=== PATIENT | female | born 1955 | race Caucasian/White ===

== ENCOUNTER → 2016-12-07 | Outpatient (CLI) | payer OTHER ==
[~2016-12-07] MED LIST: ASPI-515 PO; CHOL100015 PO; IMAT400T PO; LISI5TAB7 PO; METF10002 PO; OMNIPAQUE 350 MG/ML, 100ML BOTTLE ONE; PRAV10TA2 PO
== END | disposition home or self-care (01) ==
LOC: CFH 14:08
PROVIDERS: ATTEND Specialist
DX: C16.2 Malignant neoplasm of body of stomach (principal); J90 Pleural effusion, not elsewhere classified; K76.89 Other specified diseases of liver; I31.3 Pericardial effusion (noninflammatory); J98.11 Atelectasis; L89.899 Pressure ulcer of other site, unspecified stage; N26.1 Atrophy of kidney (terminal); N28.1 Cyst of kidney, acquired; M47.896 Other spondylosis, lumbar region
CPT/HCPCS: 71030; 74177; Q9967

== ENCOUNTER → 2017-03-30 | Outpatient (CLI) | payer OTHER ==
[~2017-03-30] MED LIST changes: -OMNIPAQUE 350 MG/ML, 100ML BOTTLE ONE
== END | disposition home or self-care (01) ==
LOC: CFH 08:09
PROVIDERS: ATTEND Internal Medicine
DX: Z12.31 Encounter for screening mammogram for malignant neoplasm of breast (principal); E78.2 Mixed hyperlipidemia; E11.65 Type 2 diabetes mellitus with hyperglycemia; K21.9 Gastro-esophageal reflux disease without esophagitis
CPT/HCPCS: G0202

== ENCOUNTER → 2017-06-07 | Outpatient (CLI) | payer OTHER ==
[~2017-06-07] MED LIST changes: +OMNIPAQUE 350 MG/ML, 100ML BOTTLE ONE
== END | disposition home or self-care (01) ==
LOC: CFH 11:26
PROVIDERS: ATTEND Specialist
DX: C78.7 Secondary malignant neoplasm of liver and intrahepatic bile duct (principal); C16.2 Malignant neoplasm of body of stomach; N28.1 Cyst of kidney, acquired; M51.36 Other intervertebral disc degeneration, lumbar region
CPT/HCPCS: 71260; 74177; Q9967

== ENCOUNTER 2017-09-10 08:11 | Emergency (ER) | payer OTHER ==
[~2017-09-10] VITALS: Ht 175.3 cm; Wt 61.1 kg
[~2017-09-10 08:11] MED LIST changes: -OMNIPAQUE 350 MG/ML, 100ML BOTTLE ONE
[2017-09-10 08:13] VITALS: BP 150/90
[2017-09-10] MEDS ORDERED: METO200T5 PO (08:30)
[2017-09-10] MEDS ORDERED: LEVO100T PO (08:30)
[2017-09-10] MEDS ORDERED: CEPH-368 PO (08:30)
[2017-09-10] MEDS ORDERED: MAGN400T36 PO (08:30)
[2017-09-10] MEDS ORDERED: AMLO10TA2 PO (08:30)
[2017-09-10] MEDS ORDERED: SUNI50CA PO (08:30)
[2017-09-10] MEDS ORDERED: KETOROLAC 30 MG/1 ML ONE (10:24)
[2017-09-10] MEDS ORDERED: KETOROLAC 60 MG/2 ML IM ONE (10:30)
== END 2017-09-10 12:06 | disposition home or self-care (01) ==
LOC: ED 11:50
DX: M54.12 Radiculopathy, cervical region (principal); I10 Essential (primary) hypertension; F17.210 Nicotine dependence, cigarettes, uncomplicated
CPT/HCPCS: 36415; 72050; 80047; 84484; 93005; 99285

== ENCOUNTER → 2017-10-06 | Outpatient (CLI) | payer OTHER ==
[~2017-10-06] MED LIST changes: +AMLO10TA2 PO; +CEPH-368 PO; +LEVO100T PO; +MAGN400T36 PO; +METO200T5 PO; +SUNI50CA PO
== END ==
LOC: CFH 12:00
PROVIDERS: ATTEND Nurse Practitioner Primary Care
DX: M48.02 Spinal stenosis, cervical region (principal); M25.78 Osteophyte, vertebrae; I10 Essential (primary) hypertension; E11.65 Type 2 diabetes mellitus with hyperglycemia; K21.9 Gastro-esophageal reflux disease without esophagitis; E03.9 Hypothyroidism, unspecified; E78.2 Mixed hyperlipidemia; E05.90 Thyrotoxicosis, unspecified without thyrotoxic crisis or storm; I47.1 Supraventricular tachycardia; R79.9 Abnormal finding of blood chemistry, unspecified; R53.83 Other fatigue; R01.1 Cardiac murmur, unspecified; E55.9 Vitamin D deficiency, unspecified; N39.0 Urinary tract infection, site not specified; G89.29 Other chronic pain; R20.2 Paresthesia of skin; Z79.899 Other long term (current) drug therapy
CPT/HCPCS: 72141

== ENCOUNTER → 2017-11-04 | Outpatient (CLI) | payer OTHER ==
[~2017-11-04] MED LIST changes: +METO200T47 PO; -METO200T5 PO; +OMNIPAQUE 350 MG/ML, 100ML BOTTLE ONE
== END | disposition home or self-care (01) ==
LOC: CFH 09:00
PROVIDERS: ATTEND Specialist
DX: C16.2 Malignant neoplasm of body of stomach (principal); K76.89 Other specified diseases of liver; J90 Pleural effusion, not elsewhere classified; N28.1 Cyst of kidney, acquired
CPT/HCPCS: 74177; Q9967

== ENCOUNTER → 2017-11-05 | Outpatient (CLI) | payer OTHER ==
[~2017-11-05] MED LIST changes: -OMNIPAQUE 350 MG/ML, 100ML BOTTLE ONE
== END | disposition home or self-care (01) ==
LOC: CFH 10:47
PROVIDERS: ATTEND Specialist
DX: J90 Pleural effusion, not elsewhere classified (principal); C16.2 Malignant neoplasm of body of stomach; C78.7 Secondary malignant neoplasm of liver and intrahepatic bile duct
CPT/HCPCS: 71046